=== PATIENT | male | born 1995 | race Two or more races ===

== ENCOUNTER 2025-07-23 18:20 | Emergency (ER) | payer MEDICAID ==
[~2025-07-23] VITALS: Ht 182.9 cm; Wt 83.9 kg
[2025-07-23] MEDS ORDERED: ONDANSETRON HCL/PF 4 MG/2 ML VIAL ONE ×2 (18:51→19:54)
[2025-07-23] MEDS: IV NS 0.9% 1,000 ML BAG IV ONE (18:54)
[2025-07-23] MEDS: ONDANSETRON HCL/PF 4 MG/2 ML VIAL IVP ONE (18:54)
[2025-07-23] MEDS ORDERED: MAG HYDROX/AL HYDROX/SIMETH 30 ML UDC ONE (18:56)
[2025-07-23] MEDS ORDERED: LIDOCAINE VISCOUS 2% UD 15 ML UDC ONE (18:56)
[2025-07-23 18:57] LABS: PLATELET COUNT (AUTO) 459 K/uL (150-450); RED BLOOD CELL COUNT(AUTO) 5.13 MIL/uL (4.5-6.0); RED CELL DISTRIBUTION WIDTH 12.8 % (11.5-15.0); WHITE BLOOD COUNT (AUTO) 19.7 K/uL (4.3-11.0)
[2025-07-23] MEDS: LIDOCAINE VISCOUS 2% UD 15 ML UDC MM ONE (18:59)
[2025-07-23] MEDS: MAG HYDROX/AL HYDROX/SIMETH 30 ML UDC PO ONE (18:59)
[2025-07-23 19:05] LABS: CALCIUM, SERUM 10.0 mg/dL (8.5-10.1); CREATININE 1.1 mg/dL (0.6-1.3); SODIUM SERUM 141.0 mmol/L (136-145); UREA NITROGEN, BLOOD 25.0 mg/dL (7-18)
[2025-07-23 19:10] LABS: ASPARTATE AMINOTRANSFERASE 24.0 U/L (15-37); TOTAL PROTEIN, SERUM 8.9 g/dL (6.4-8.2)
[2025-07-23] MEDS ORDERED: IOHEXOL-300 100 ML VIAL IV ONE (19:49)
[2025-07-23] MEDS ORDERED: IV NS 0.9% 250 ML IV ONE (19:49)
[2025-07-23] MEDS: ONDANSETRON HCL/PF 4 MG/2 ML VIAL IV ONE (19:56)
[2025-07-23] MEDS ORDERED: LORAZEPAM INJ 2 MG/ML VIAL ONE (20:12)
[2025-07-23] MEDS: LORAZEPAM INJ 2 MG/ML VIAL IV ONE (20:15)
[2025-07-23] MEDS ORDERED: FAMOTIDINE/PF INJ 20 MG/2 ML VIAL IV ONE (20:55)
[2025-07-23] MEDS: FAMOTIDINE/PF INJ 20 MG/2 ML VIAL IV ONE (21:00)
[2025-07-23] MEDS ORDERED: MAG-55 PO (21:24)
[2025-07-23] MEDS ORDERED: OMEP20CA15 PO (21:24)
[2025-07-23] MEDS ORDERED: FAMO20TA8 PO (21:24)
[2025-07-23] MEDS ORDERED: ONDA4TAB5 PO (21:24)
[2025-07-23 21:35] VITALS: BP 132/73; TEMP 98; O2SAT 99
== END 2025-07-23 21:51 | disposition home or self-care (01) ==
LOC: ER 18:28
DX: R10.13 Epigastric pain (principal); R11.2 Nausea with vomiting, unspecified; K29.70 Gastritis, unspecified, without bleeding; Z87.11 Personal history of peptic ulcer disease; Z87.19 Personal history of other diseases of the digestive system
CPT/HCPCS: 99285; 74177; 96374; 96375; 96361; 96376; 85025; 80048; 83690; 80076; 36415; J2060; J1308; J2405 ×2; J7030; J7050; Q9967